=== PATIENT | female | born 1950 | race Caucasian/White ===

== ENCOUNTER → 2018-04-23 11:15 | Outpatient (CLI) | payer MEDICARE, OTHER ==
[2011-07-15 12:39] VITALS: BMI 23.7
== END | disposition home or self-care (01) ==
LOC: D.MRI 04-19 11:30
DX: M25.512 Pain in left shoulder (principal)

== ENCOUNTER → 2018-06-15 14:46 | Outpatient (CLI) | payer MEDICARE, OTHER ==
[2011-07-15 12:39] VITALS: BMI 23.7
== END | disposition home or self-care (01) ==
LOC: D.MRI 14:46
DX: M54.12 Radiculopathy, cervical region (principal)

== ENCOUNTER → 2020-06-12 13:53 | Outpatient (CLI) | payer MEDICARE, OTHER ==
[2011-07-15 12:39] VITALS: BMI 23.7
== END | disposition home or self-care (01) ==
LOC: D.MRI 06-06 13:00
PROVIDERS: ATTEND Orthopaedic Surgery
DX: M54.16 Radiculopathy, lumbar region (principal)